=== PATIENT | male | born 1955 | race Caucasian/White ===

== ENCOUNTER 2024-06-27 02:55 | Observation (INO) ==
--- OUTSIDE RECORDS SUMMARY | 2024-06-27 02:59 | External Medical Summary | Continuity of Care Document ---
Author Name Unknown Organization [facility] [address] Address [address] [place], [place] [id number] Care Team Providers Care Haul Cane Brakeman Name Role Phone Janet Martinez Primary Care Physician [phone] [id number] Date(s): 06/15/24 - 06/15/24 [facility] [address] 1 [facility] [place], [place] [phone] Encounter Diagnosis Obstructive sleep apnea (adult) (pediatric)(Final) - Encounter for screening for lipoid disorders(Final) - Nontoxic single thyroid nodule(Final) - Mastodynia(Final) - Discharge Disposition: Home or Self Care Attending Physician: MD Martinez [place] Referring Physician: MD Michelle, Janet Allergies, Adverse Reactions, Alerts No Known Medication Allergies Substance Criticality Severity Reaction Reaction Severity Status Pollen eyes itching, nose running Active Immunizations Given and Recorded Vaccine Date Status Refusal Reason influenza virus vaccine, inactivated 05/17/24 Give n influenza virus vaccine, inactivated 08/13/23 Give n influenza virus vaccine, inactivated 04/18/22 Give n tetanus/diphtheria/pertuss, acel (Tdap) 08/13/23 G iven pneumococcal 20-valent conjugate vaccine 08/13/23 Given SARS-CoV-2 mRNA (Pfizer 12+) bivalent 04/05/22 Rec orded zoster vaccine, inactivated 04/10/21 Given zoster vaccine, inactivated 01/30/21 Given SARS-CoV-2 (COVID-19) mRNA-1273 vaccine 1 12/11/20 Recorded SARS-CoV-2 (COVID-19) mRNA-1273 vaccine 2 10/31/20 Recorded 1Result Comment: 2021-01-30: Historical information-source unspecified 2Result Comment: 2021-01-30: Historical information-source unspecified Medications Astelin 137 mcg/inh nasal spray Start: 01/30/21 3:32:00 PM EDT, 2 spray, each nostril, bid, Disp# 1 each, Refills: 3, PRN: as neededfor allergy symptoms, Pharmacy: [id number] Start Date: 01/30/21 Status: Ordered Folate Forte Start: 04/17/23 2:55:00 PM EDT, 1 tab, PO, Daily Start Date: 04/17/23 Status: Ordered triamcinolone 0.025% topical cream Start: 01/05/20 8:43:00 AM EDT, 1 appl, topical, bid, Disp# 15 g, Refills: 1, apply a thin film to affected area, Pharmacy: [id number] Start Date: 01/05/20 Status: Ordered Vitamin B1 100 mg oral tablet Start: 04/17/23 2:54:00 PM EDT, 1 tab, PO, Daily Start Date: 04/17/23 Status: Ordered Vitamin B12 1000 mcg oral tablet Start: 04/17/23 2:55:00 PM EDT, 1 tab, PO, Daily Start Date: 04/17/23 Status: Ordered Vitamin B6 100 mg oral tablet Start: 04/17/23 2:55:00 PM EDT, 1 tab, PO, Daily Start Date: 04/17/23 Status: Ordered Problem List Condition Confirmation Course Effective Dates Status Health St atus Informant Sleep apnea Confirmed Active Tinnitus Confirmed Active Procedures Procedure Date Related Diagnosis Body Site Status Diagnostic mammogram 02/10/24 Comp leted BIOPSY OF THYROID 07/2023 Complet ed US scan of thyroid 1 04/24/23 Comp leted X-ray of right ankle 2 Co mpleted 1IMPRESSION Multinodular thyroid gland. Ultrasound-guided fine-needle aspiration recommended for the dominant 22 mm nodule in the left thyroid and the dominant 25 mm nodule within the left side of the isthmus 21. Soft tissue swelling without acute fracture or dislocation identified. 2. Subcentimtere bone fragment adjacent to the lateral malleolus is suggestive of an age indeterminate avulsion fracture, likely chronic. 3. Moderate joint effusion. Results Laboratory List Name Date Complete Blood Count w Differential (CBC ,DIFFH) 06/15/24 Comprehensive Metabolic Panel (COMP META B PANEL) 06/15/24 Lipid Profile (LIPOPROTEINS) 06/15/24 Most recent to oldest [Reference Range]: 1 eGFR CKD-EPI [>60 mL/min/1.73 m2] >90 mL /min/1.73 m2 1 (06/15/24 9:58 AM) Non-HDL 100 mg/dL 2 (06/15/24 9:58 AM) Estimated CrCl 121.09 mL/min (06/15/24 11:00 AM) MPV [9.0-12.2 fL] 9.4 fL (06/15/24 9:58 AM) Immature Gran% 0.9 % (06/15/24 9:58 AM) Neut% 56.8 % (06/15/24 9:58 AM) Lymph% 31.1 % (06/15/24 9:58 AM) [place]% 7.8 % (06/15/24 9:58 AM) Baso% 0.5 % (06/15/24 9:58 AM) Eos% 2.9 % (06/15/24 9:58 AM) Immat Gran, Abs [0-0.4 K/uL] 0.05 K/uL (06/15/24 9:58 AM) Neut, Abs [2.0-7.7 K/uL] 3.33 K/uL (06/15/24 9:58 AM) Lymph, Abs [1.0-3.4 K/uL] 1.82 K/uL (06/15/24 9:58 AM) [place], Abs [0-1.0 K/uL] 0.46 K/uL (06/15/24 9:58 AM) Baso, Abs [0-0.1 K/uL] 0.03 K/uL (06/15/24 9:58 AM) Eos, Abs [0-0.5 K/uL] 0.17 K/uL (06/15/24 9:58 AM) Type of Diff: AUTO *Unknown* (06/15/24 9:58 AM) RDW [11.5-14.2 %] 12.6 % (06/15/24 9:58 AM) Anion Gap [5-14 mmol/L] 4 mmol/L *LOW* (06/15/24 9:58 AM) Alb [3.5-5.0 g/dL] 4.0 g/dL (06/15/24 9:58 AM) Alk Phos [38-126 unit/L] 74 unit/L (06/15/24:58 AM) ALT [<50 unit/L] 18 unit/L (06/15/24 9:58 AM) AST [15-46 unit/L] 29 unit/L (06/15/24:58 AM) BUN [7-20 mg/dL] 15 mg/dL (06/15/24:58 AM) Ca [8.4-10.2 mg/dL] 8.8 mg/dL (06/15/24:58 AM) Chol/HDL 3 (06/15/24:58 AM) Chol [125-200 mg/dL] 145 mg/dL (06/15/24:58 AM) Cl- [96-107 mmol/L] 107 mmol/L (06/15/24:58 AM) HCO3 [22-30 mmol/L] 29 mmol/L (06/15/24:58 AM) Cret [0.70-1.30 mg/dL] 0.70 mg/dL (06/15/24:58 AM) Glu [74-106 mg/dL] 104 mg/dL (06/15/24:58 AM) Hct [39-48 %] 42.0 % (06/15/24:58 AM) HDL [>35 mg/dL] 45 mg/dL (06/15/24:58 AM) Hgb [13.0-17.0 g/dL] 13.9 g/dL (06/15/24:58 AM) K [3.5-5.1 mmol/L] 3.9 mmol/L (06/15/24:58 AM) LDL Chol, Calculated [50-130 mg/dL] 84 m g/dL (06/15/24:58 AM) MCH [28-33 pg] 30.0 pg (06/15/24:58 AM) MCHC [32-36 g/dL] 33.1 g/dL (06/15/24 9:58 AM) MCV [81-96 fL] 90.5 fL (06/15/24 9:58 AM) Na [137-145 mmol/L] 140 mmol/L (06/15/24 9:58 AM) Plts [150-350 K/uL] 221 K/uL (06/15/24 9:58 AM) RBC [4.40-5.60 M/uL] 4.64 M/uL (06/15/24 9:58 AM) T Bili [0.2-1.3 mg/dL] 0.5 mg/dL (06/15/24 9:58 AM) Prot [6.3-8.2 g/dL] 7.0 g/dL (06/15/24 9:58 AM) TG [<200 mg/dL] 78 mg/dL (06/15/24 9:58 AM) WBC [4.0-10.4 K/uL] 5.86 K/uL (06/15/24 9:58 AM) 1Result Comment: Testing Performed By: Dept of Pathology [facility] [address], [address] [place] [address] 2Result Comment: Testing Performed By: Dept of Pathology [facility] [address], [address] [place] [address] Social History Social History Type Response Smoking Status Never smoked cigaret yee Sex Male Sex Representation Male (finding) Patient Care team information Care Team Personnel Name: MD Michelle, Janet Position: Physician - Family Med Member Role: Primary Care Provider Address: [address] [place] [address], [place] [address] [place] Care Team Related Persons Name: BROOK SHELDON Name: BROOK SHELDON
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
--- OUTSIDE RECORDS SUMMARY | 2024-06-27 02:59 | External Medical Summary | Continuity of Care Document ---
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 Name Role Phone Janet Martinez Primary Care Physician [phone] [id number] Date(s): 03/05/24 - 03/05/24 [facility] [address] [facility] [address] [facility] [address] [place], [place] [phone] Encounter Diagnosis Hypertrophy of breast(Final) - Discharge Disposition: Home or Self Care Attending Physician: MD Martinez [place] Referring Physician: MD Martinez [place] Allergies, Adverse Reactions, Alerts No Known Medication Allergies Substance Criticality Severity Reaction Reaction Severity Status Pollen eyes itching, nose running Active Immunizations Given and Recorded Vaccine Date Status Refusal Reason influenza virus vaccine, inactivated 08/13/23 Give n [...] 3, PRN: as neededfor allergy symptoms, Pharmacy: [id number] Start Date: 01/30/21 Status: Ordered Folate Forte Start: 04/17/23 2:55:00 PM EDT, 1 tab, PO, Daily Start Date: 04/17/23 Status: Ordered triamcinolone 0.025% topical cream Start: 01/05/20 8:43:00 AM EDT, 1 appl, topical, bid, Disp# 15 g, Refills: 1, apply a thin film to affected area, Pharmacy: [id number] Start Date: 01/05/20 Status: Ordered [...] joint effusion. Results Laboratory List Name Date HCG, Beta, Quantitative (HCG, BETA) 03/05 Luteinizing Hormone (LH) 03/05/24 Thyroid Stimulating Hormone (TSH) 4 Most recent to oldest [Reference Range]: 1 HCG (q) [<5 mIU/mL] <5 mIU/mL 1 (03/05/24 9:59 AM) LH [1.7-8.6 mIU/mL] 3.20 mIU/mL (03/05/24 9:59 AM) TSH [0.47-4.68 uIU/mL] 1.91 uIU/mL 2 (03/05/24 9:59 AM) 1Result Comment: HCG levels may be falsely elevated by a number of interfering factors includingheterophilic antibodies. If the HCG result is inconsistent with or not supported by clinical evidence, results should be confirmed by a urine HCG test. Because of the concern regarding false positive results, HCG results should only be used in conjunction with other clinical information before acting onthe result. 2Result Comment: Testing Performed By: Dept of Pathology [facility] [address], [address] [place] [address] Social History Social History Type Response Smoking Status Never smoked cigaret yee Sex Male Sex Representation Male (finding) Patient Care team information Care Team Personnel Name: MD Michelle, [place] Position: Physician - Family Med Member Role: Primary Care Provider Address: [address] [place] [address] [place] Care Team Related Persons Name: BROOK SHELDON Name: BROOK SHELDON
--- OUTSIDE RECORDS SUMMARY | 2024-06-27 02:59 | External Medical Summary | Continuity of Care Document ---
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 Name Role Phone Jante Martinez Primary Care Physician [phone] [id number] Date(s): 03/02/24 - 03/02/[address] [address] [phone] Encounter Diagnosis Gynecomastia, male(Discharge Diagnosis) - 03/02/24 Discharge Disposition: Home or Self Care Attending Physician: MD Michelle Janet Referring Physician: MD Michelle, Janet Allergies, Adverse Reactions, Alerts No Known Medication Allergies Substance Criticality Severity Reaction Reaction Severity Status Pollen eyes itching, nose running Active Assessment and Plan Extracted from: Title:Office Visit Note Author:MD Michelle, [facility] Date:03/02/24 1.Gynecomastia, male Discussed with patient thathisrightbreastgynecomastia,probably benign. Advised to schedule his ultrasoundof the breast. Will order labslikeTSH,luteinizing hormone, HCGand estradiol. Referral toendocrinologistforfurther evaluation and management. Informhimwe probably do not need this test anymore butit is best to just go ahead and do itadvised to make an appointment withendocrinology. Follow-up as needed Immunizations Given and Recorded Vaccine Date Status [...] 3, PRN: as neededfor allergy symptoms, Pharmacy: [id number] Start Date: 01/30/21 Status: Ordered Folate Forte Start: 04/17/23 2:55:00 PM EDT, 1 tab, PO, Daily Start Date: 04/17/23 Status: Ordered triamcinolone 0.025% topical cream Start: 01/05/20 8:43:00 AM EDT, 1 appl, topical, bid, Disp# 15 g, Refills: 1, apply a thin film to affected area, Pharmacy: [id number] Start Date: 01/05/20 Status: [...] Start Date: 04/17/23 Status: Ordered Mental Status 03/02/24 Barriers to Learning one year None evide nt Mandatory Health Literacy Documentation Yes Health Literacy Communication Barriers N ever Primary Language Persian Problem List Condition Confirmation Course Effective Dates Status Health St atus Informant Sleep apnea Confirmed Active Tinnitus Confirmed Active Diagnosis Diagnosis Type Effective Dates Health Status Cl inical Service Informant Gynecomastia, male Discharge Diagnosis 03/02/24 Non-Specified Procedures Procedure Date Related Diagnosis Body [...] Most recent to oldest [Reference Range]: 1 Patient Weight 99.5 kg (03/02/24 10:08 AM) Heart Rate 51 bpm (03/02/24 10:08 AM) Respiratory Rate 18 br/min (03/02/24 10:08 AM) Blood Pressure 142/80mmHg (03/02/24 10:08 AM) Social History Social History Type Response Smoking Status Never smoked cigaret yee Sex Male Sex Representation Male (finding) [facility] Outpt Note * MD Michelle, [place]: PERFORM Event Display: [facility] Outpt Note Authored Date: [id number] Chief Complaint discuss test results - continues to have RT breast pain History of Present Illness 68-year-old male here today for follow-upof rightbreast pain started more than a monthago.He had mammogram donewhich showedright breastgynecomastia. Patient reported that he has notscheduledhis appointmentfor ultrasound of the breast. Today patient is complaining aboutlingering pain. He tried Tylenoland Motrin whichafforded no relief. Massagingthe breastnipplemakes it better. Deniesfever denies and deniesunintentional weight loss, deniesnipple discharge, deniesswelling or redness onthe right breast. Review of Systems See HPI Physical Exam Vitals & Measurements HR:51(Monitored) RR:18 BP:142/80 SpO2:98% WT:99.500kg(Dosing) WT:99.5kg PHQ2 Data(Data Documented on:03/02/2024 10:08) Emotional health assessment NEGATIVE General: alert and oriented, no acute distress HENT: normocephalic Neck: supple, no cervical or axillary LAP Breastexam:left breast normal exam. Right breast:no erythema, no swelling, tender to palpation below areola,nopalpable mass at the time of examination. But,patient still complaining about breast tenderness.. no nipple discharge seen. norash. No nipple dimpling Resp: Lungs CTA, non-labored respirations, BS equal, symmetrical expansion CV: normal rate and rhythm, no murmur, no gallop, good pulses equal in all extremities, normal peripheral perfusion, no edema GI: soft, non-tender, non-distended, normal bowel sounds, no organomegaly : no CVA tenderness MS: normal gait Psychiatric: appropriate mood and affect, normal judgement, non-suicidalhe Assessment/Plan 1.Gynecomastia, male Discussed with patient thathisrightbreastgynecomastia,probably benign. Advised to schedule his ultrasoundof the breast. Will order labslikeTSH,luteinizing hormone, HCGand estradiol. Referral toendocrinologistforfurther evaluation and management. Informhimwe probably do not need this test anymore butit is best to just go ahead and do itadvised to make an appointment withendocrinology. 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 Highest education:Post graduate degree(s) Exercise Duration (average number of minutes):30 Times per week:5-6 times/week Exercise type:Aerobics - Comments: Cycling Tobacco - Denies Tobacco Use Family History Cancer: Father. Colon cancer stage 1: Mother. Glaucoma: Father. Hypertension: Father. Lung cancer: MGF. Health Status Family Member(s) Immunizations Vaccine Date Status influenza virus vaccine, inactivated 08/13/2023 Given tetanus/diphtheria/pertuss, [...] Recommendations Health Maintenance Pending(in the next year) OverDue Adult Influenza Vaccine due01/04/24and every 1year Due Adult COVID-19 Vaccination due03/03/24Unknown Frequency Adult Social Determinants of Health Screening due03/03/24Unknown Frequency Falls Plan of Care due03/03/24Unknown Frequency Hepatitis C Screening due03/03/24One-time only Medicare Annual Wellness Visit due03/03/24and every 1year Satisfied(in the past 1 year) Satisfied Adult Influenza Vaccine on08/13/23.Satisfied by MICHAEL Ward Bobbi Adult Tdap/Td Vaccine on08/13/23.Satisfied by MICHAEL Ward Bobbi Body Mass Index on08/13/23.Satisfied by MICHAEL Ward Bobbi Colorectal Cancer Screening on06/01/23.Satisfied by SASHA Johnson Lisa Lipid Screening on05/13/23.Satisfied by Contributor_system, [id number] Pneumococcal Vaccine Older Adults on08/13/23.Satisfied by MICHAEL Ward Bobbi Electronic Signature on File Electronically Reviewed/Signed by: Janet Martinez MD Author Signature Dt/Tm:03/03/2024 01:48 AM Department of Family Medicine VS Patient Care team information Care Team Personnel Name: MD Michelle, Janet Position: Physician - Family Med Member Role: Primary Care Provider Address: [address] [place] [address] [place] Care Team Related Persons Name: BROOK SHELDON Name: BROOK SHELDON"
[2024-06-27 03:34] LABS: Basophils # (auto) 0.04 K/uL (0.00-0.20); Basophils % (auto) 0.3 %; Eosinophils # (auto) 0.04 K/uL (0.00-0.50); Eosinophils % (auto) 0.3 %; Hematocrit (blood only) 42.4 % (42.0-52.0); Hemoglobin 14.4 g/dl (14.0-18.0); Immature Granulocytes # (auto) 0.06 K/uL (0.01-0.20); Immature Granulocytes % (auto) 0.4 %; Lymphocytes # (auto) 1.31 K/uL (1.20-3.40); Lymphocytes % (auto) 9.4 %; Mean Corpuscular Hemoglobin 29.7 pg (25.0-34.0); Mean Corpuscular Volume 87.4 fL (80.0-100.0); Mean Platelet Volume 8.8 fL (9.4-12.4); Monocytes # (auto) 0.52 K/uL (0.11-0.59); Monocytes % (auto) 3.7 %; Neutrophils # (auto) 11.97 K/uL (1.40-6.50); Neutrophils % (auto) 85.9 %; Platelet Count 212 K/uL (130-400); RDW Coefficient of Variation 12.4 % (11.5-14.5); RDW Standard Deviation 39.8 fL (36.4-46.3); Red Blood Count 4.85 M/uL (4.70-6.10); White Blood Count 13.94 K/ul (4.8-10.8)
[2024-06-27] MEDS: fentaNYL citrate PF 100 MCG/2 ML VIAL IV STA ×2 (03:45→12:35)
[2024-06-27] MEDS: ACETAMINOPHEN 1,000 MG/100 ML VIAL IV STA (03:46)
[2024-06-27] MEDS: PANTOprazole 40 MG/10 ML SYR IV ONE (03:46)
[2024-06-27] MEDS: SODIUM CHLORIDE 0.9% 1,000 ML IV SCH (03:47)
[2024-06-27 03:51] LABS: Albumin Globulin Ratio 1.6 (0.9-2); Albumin Level 4.6 gm/dl (3.4-5.0); BUN Creatinine Ratio 19.8 (10-20); Bilirubin,Total 0.7 mg/dl (0.2-1.0); Calcium 9.2 mg/dl (8.6-10.3); Creatinine Clr Calc Pharmacy 104.7 ml/min; Globulin 2.8 gm/dl (2.5-4.0); Potassium 3.5 mmol/L (3.5-5.1); Total Protein 7.4 gm/dl (6.0-8.3)
[2024-06-27] MEDS: OPTIRAY 320 100ml IV ONE (04:06)
--- NOTE | 2024-06-27 04:54 | Emergency Department Note ---
Impression & Plan Abdominal pain, Cholelithiasis ED Provider Note ED Provider Note NAME: FLOYD SHELDON AGE:68 SEX: Male : 1955 ARRIVES VIA: Private vehicle INFORMANT: Patient ED PROVIDER(s): Elva Reyes DO CHIEF COMPLAINT: Abdominal pain HPI: This is a 68-year-old male presents emergency department with abdominal pain. Patient states pain began abruptly 4 hours ago before he had gone to bed. He states initially it was more diffuse across the abdomen and now feels more localized to the upper central abdomen. He states pain has been constant, no change with position or exertion. He states he does have some accompanying discomfort in his back but does have a history of back pain. He admits to slight nausea although no vomiting, no fevers or chills. He states he has not had a bowel movement today which is unusual for him although no recent change in bowel movements or urine. No recent fevers, chills, URI symptoms. No recent change in diet or medications. Patient has never had a colonoscopy. No prior abdominal surgeries. No history of IBS or IBD. PAST MEDICAL HISTORY:See Below PAST SURGICAL HISTORY:See Below FAMILY HISTORY:See Below SOCIAL HISTORY:See Below HOME MEDICATIONS:See Below ALLERGIES:See Below VITALS:See Below PHYSICAL EXAMINATION: GENERAL: alert, well appearing, well nourished, no distress, non-toxic EYE EXAM: normal conjunctiva, PERRL and EOM's grossly intact OROPHARYNX: no exudate, no erythema, lips, buccal mucosa, and tongue normal and mucous membranes are moist NECK: supple, no nuchal rigidity, no adenopathy, non-tender LUNGS: Clear to auscultation. Normal chest wall mechanics, no w/r/r HEART: no murmurs, S1 normal and S2 normal ABDOMEN: abdomen soft, mild epigastric tenderness with palpation, normo-active bowel sounds, no masses, no rebound or guarding. Dull to percussion. BACK: Back is symmetrical on inspection and there is no deformity, no midline tenderness, no CVA tenderness. SKIN: no rashes, petechiae, orbruising UPPER EXTREMITIES: upper extremities are grossly normal. FROM, nml pulses b/l. LOWER EXTREMITIES: No pitting edema. FROM, nml pulses b/l. NEURO EXAM: Normal sensorium, cranial nerves II-XII grossly intact, normal speech, no facial droop,nogross weakness of arms, no gross weakness of legs. Gross sensation intact. No ataxia. Vital Signs: reviewed and remarkable Differential Diagnosis: ACS, PUD, gastritis, GERD, cholecystitis, pancreatitis, colitis, bowel obstruction, perforation, GI bleed, dehydration, medication ADR, foodborne illness, viral syndrome, AAA, as well as others were considered MEDICAL DECISION MAKING: THis is a 68 yo male who presents to the ER with concern for epigastric pain. He was afebrile and VS stable. Labs drawn and sent, IV established, and patient monitored on telemetry. He was started on IVF and given IV tylenol, IV fentanyl, and IV protonix with improvement in his symptoms. Patient sent for CT initially which showed cholelithiasis, no cholecystitis and no other acute pathology. Given CT findings, he was sent for US additionally which suggested early cholecystitis. Given accompanying persistence of pain despite improvement after meds and leukocytosis noted on labs, case discussed with gen surg who came and evaluated the patient at bedside. Consultation(s): 0847: Discussed with Dr. Agudelo, general surgery, via [place] text. 0917: Dr. Agudelo now bedside evaluating the patient. ER Treatment Provided: See below Diagnostics Interpreted By Me: -ECG: Normal sinus at 61, normal axis, normal intervals, no acute ST/T wave changes -Cardiac Monitoring: An order was placed for continuous cardiac monitoring. The monitor shows a rate of 80 with normal sinus rhythm. -Laboratory studies: As stated above and show below. -Imaging studies: CT a/p - no sbo, no perf Triage Nursing Note Reviewed Prior/Outside Records Reviewed Past Med/Surg History Problem List (Updated 06/27/24 @ 09:21 by Ryan Agudelo DO) Umbilical hernia without mention of obstruction or gangrene Acute cholecystitis Cholelithiasis (Acute) Abdominal pain (Acute) Surgical History (Updated 06/28/24 @ 12:05 by Lyssa Reid RN) Hx laparoscopic cholecystectomy (06/27/24) Laparoscopic Cholecystectomy(Not Applicable) - Ryan Agudelo DO Social History (Updated 03/05/24 @ 13:33 by Marilee Mendoza LPN) Smoking Status: Never smoker Hx Alcohol Use: Yes Alcohol type: beer Hx Substance Use: No Preferred Language: Italian Communication Ability: Effective Butter Melter Required: No Beliefs That Will Affect Care: None Current Living Situation: Spouse Feels Safe at Home: Yes Assistive Devices: Glasses and Hearing Aid - Bilateral Allergies Allergies Allergy/AdvReac Type Severity Reaction Status Date / Time No Known Allergies Allergy Verified 03/05/24 13:33 Home Meds Home Medications Medication Instructions Recorded Confirmed azelastine 137 mcg (0.1 %) nasal 2 spray intranasal BID 03/05/24 03/05/24 spray cyanocobalamin (vitamin B-12) 1,000 mcg PO DAILY 03/05/24 03/05/24 1,000 mcg tablet multivitamin 1 tab PO DAILY 03/05/24 03/05/24 pyridoxine (vitamin B6) 100 mg 100 mg PO DAILY 03/05/24 03/05/24 tablet thiamine HCl (vitamin B1) 100 mg 100 mg PO DAILY 03/05/24 03/05/24 tablet triamcinolone acetonide 0.025 % 1 applic topical BID 03/05/24 03/05/24 lotion Previous Rx's Medication Instructions Recorded oxycodone 5 mg tablet 5 - 10 mg (1 - 2 x 5 mg) PO 06/28/24 [id number] PRN pain #15 tabs Results & Data (ED) Vital Signs Vital Signs - 24 hr 06/27/24 02:55 06/27/24 03:08 06/27/24 03:17 Temperature 36.6 C Temperature Source Temporal Artery Scan Pulse Rate 64 63 62 Pulse Rate [Apical] Pulse Rate from SpO2 Sensor Pulse Rhythm Regular Pulse Rhythm [Apical] Pulse Strength [Apical] Respiratory Rate 22 17 Respiratory Effort / Characteristics Non-Labored Spontaneous Respiratory Depth Normal Respiratory Pattern Blood Pressure 197/87 H Blood Pressure [Right Arm] Blood Pressure Mean 123 Blood Pressure Mean [Right Arm] Blood Pressure Position [Right Arm] Pulse Oximetry 98 98 Oxygen Delivery Method Room Air Room Air Sepsis Recent Fever Within 48 Hours No Sepsis New/Unexplained Change in Mental Status No Sepsis Action Taken by Nursing No Action Required 06/27/24 03:25 06/27/24 05:00 06/27/24 07:00 Temperature Temperature Source Pulse Rate Pulse Rate [Apical] 62 81 Pulse Rate from SpO2 Sensor Pulse Rhythm Pulse Rhythm [Apical] Regular Regular Pulse Strength [Apical] Normal Normal Respiratory Rate 17 17 Respiratory Effort / Characteristics Non-Labored Non-Labored Respiratory Depth Normal Normal Respiratory Pattern Regular Regular Blood Pressure 164/83 H Blood Pressure [Right Arm] 176/100 H 186/92 H Blood Pressure Mean 102 Blood Pressure Mean [Right Arm] 125 123 Blood Pressure Position [Right Arm] Sitting Sitting Pulse Oximetry 98 98 Oxygen Delivery Method Room Air Room Air Sepsis Recent Fever Within 48 Hours Sepsis New/Unexplained Change in Mental Status Sepsis Action Taken by Nursing 06/27/24 07:00 06/27/24 07:45 06/27/24 08:00 Temperature Temperature Source Pulse Rate 64 64 64 Pulse Rate [Apical] Pulse Rate from SpO2 Sensor 63 64 64 Pulse Rhythm Pulse Rhythm [Apical] Pulse Strength [Apical] Respiratory Rate 17 17 18 Respiratory Effort / Characteristics Respiratory Depth Respiratory Pattern Blood Pressure Blood Pressure [Right Arm] Blood Pressure Mean Blood Pressure Mean [Right Arm] Blood Pressure Position [Right Arm] Pulse Oximetry 96 96 95 Oxygen Delivery Method Room Air Room Air Room Air Sepsis Recent Fever Within 48 Hours Sepsis New/Unexplained Change in Mental Status Sepsis Action Taken by Nursing 06/27/24 08:00 06/27/24 08:13 06/27/24 08:30 Temperature Temperature Source Pulse Rate 71 65 Pulse Rate [Apical] Pulse Rate from SpO2 Sensor 65 Pulse Rhythm Pulse Rhythm [Apical] Pulse Strength [Apical] Respiratory Rate 16 Respiratory Effort / Characteristics Respiratory Depth Respiratory Pattern Blood Pressure 151/80 H Blood Pressure [Right Arm] Blood Pressure Mean 93 Blood Pressure Mean [Right Arm] Blood Pressure Position [Right Arm] Pulse Oximetry 96 Oxygen Delivery Method Room Air Sepsis Recent Fever Within 48 Hours Sepsis New/Unexplained Change in Mental Status Sepsis Action Taken by Nursing Laboratory Data 06/28/24 05:28 06/28/24 05:28 Lab Results 06/27/24 06/27/24 06/27/24 Range/Units 03:08 03:42 05:28 WBC 13.94 H (4.8-10.8) K/ul RBC 4.85 (4.70-6.10) M/uL Hgb 14.4 (14.0-18.0) g/dl Hct 42.4 (42.0-52.0) % MCV 87.4 (80.0-100.0) fL MCH 29.7 (25.0-34.0) pg MCHC 34.0 (32.0-36.0) g/dL RDW Std Deviation 39.8 (36.4-46.3) fL RDW Coeff of Jose 12.4 (11.5-14.5) % Plt Count 212 (130-400) K/uL MPV 8.8 L (9.4-12.4) fL Immature Gran % (Auto) 0.4 % Neut % (Auto) 85.9 % Lymph % (Auto) 9.4 % Crisp % (Auto) 3.7 % Eos % (Auto) 0.3 % Baso % (Auto) 0.3 % Neut # (Auto) 11.97 H (1.40-6.50) K/uL Lymph # (Auto) 1.31 (1.20-3.40) K/uL Crisp # (Auto) 0.52 (0.11-0.59) K/uL Eos # (Auto) 0.04 (0.00-0.50) K/uL Baso # (Auto) 0.04 (0.00-0.20) K/uL Immature Gran # (Auto) 0.06 (0.01-0.20) K/uL Sodium 138 (136-145) mmol/L Potassium 3.5 (3.5-5.1) mmol/L Chloride 103 (98-107) mmol/L Carbon Dioxide 26 (21-32) mmol/L Anion Gap 9 (3-11) BUN 16 (6-23) mg/dl Creatinine 0.81 (0.6-1.4) mg/dl Est Cr Clr Drug Dosing 104.7 ml/min eGFR 96.04 BUN/Creatinine Ratio 19.8 (10-20) Glucose 148 H (70-99(Fasting)) mg/dl Lactate 1.3 (0.4-2.0) mmol/L Calcium 9.2 (8.6-10.3) mg/dl Total Bilirubin 0.7 (0.2-1.0) mg/dl AST 23 (13-39) U/L ALT 19 (7-52) U/L Alkaline Phosphatase 80 (34-104) U/L Troponin I High Sens (0-20) pg/ml Total Protein 7.4 (6.0-8.3) gm/dl Albumin 4.6 (3.4-5.0) gm/dl Globulin 2.8 (2.5-4.0) gm/dl Albumin/Globulin Ratio 1.6 (0.9-2) Lipase 14 (11-82) U/L Urine Color Yellow Urine Appearance Clear (Clear) Urine pH 7.0 (4.5-7.5) Ur Specific Center > 1.045 H (1.000-1.030) Urine Protein Negative (Negative) Urine Glucose (UA) Negative (Negative) Urine Ketones Negative (Negative) Urine Blood Trace H (Negative) Urine Nitrite Negative (Negative) Urine Bilirubin Negative (Negative) Urine Urobilinogen Negative (Negative) Ur Leukocyte Esterase Negative (Negative) Urine WBC (Auto) 0-5 (0-5) /hpf Urine RBC (Auto) 3-5 H (0-2) /hpf U Hyaline Cast (Auto) 0-2 (0-2) /lpf U Epithel Cells (Auto) 0-2 (0-2) /hpf Urine Bacteria (Auto) None Seen (None Seen) 06/27/24 Range/Units 05:49 WBC (4.8-10.8) K/ul RBC (4.70-6.10) M/uL Hgb (14.0-18.0) g/dl Hct (42.0-52.0) % MCV (80.0-100.0) fL MCH (25.0-34.0) pg MCHC (32.0-36.0) g/dL RDW Std Deviation (36.4-46.3) fL RDW Coeff of Jose (11.5-14.5) % Plt Count (130-400) K/uL MPV (9.4-12.4) fL Immature Gran % (Auto) % Neut % (Auto) % Lymph % (Auto) % Crisp % (Auto) % Eos % (Auto) % Baso % (Auto) % Neut # (Auto) (1.40-6.50) K/uL Lymph # (Auto) (1.20-3.40) K/uL Crisp # (Auto) (0.11-0.59) K/uL Eos # (Auto) (0.00-0.50) K/uL Baso # (Auto) (0.00-0.20) K/uL Immature Gran # (Auto) (0.01-0.20) K/uL Sodium (136-145) mmol/L Potassium (3.5-5.1) mmol/L Chloride (98-107) mmol/L Carbon Dioxide (21-32) mmol/L Anion Gap (3-11) BUN (6-23) mg/dl Creatinine (0.6-1.4) mg/dl Est Cr Clr Drug Dosing ml/min eGFR BUN/Creatinine Ratio (10-20) Glucose (70-99(Fasting)) mg/dl Lactate (0.4-2.0) mmol/L Calcium (8.6-10.3) mg/dl Total Bilirubin (0.2-1.0) mg/dl AST (13-39) U/L ALT (7-52) U/L Alkaline Phosphatase (34-104) U/L Troponin I High Sens 4.6 (0-20) pg/ml Total Protein (6.0-8.3) gm/dl Albumin (3.4-5.0) gm/dl Globulin (2.5-4.0) gm/dl Albumin/Globulin Ratio (0.9-2) Lipase (11-82) U/L Urine Color Urine Appearance (Clear) Urine pH (4.5-7.5) Ur Specific Center (1.000-1.030) Urine Protein (Negative) Urine Glucose (UA) (Negative) Urine Ketones (Negative) Urine Blood (Negative) Urine Nitrite (Negative) Urine Bilirubin (Negative) Urine Urobilinogen (Negative) Ur Leukocyte Esterase (Negative) Urine WBC (Auto) (0-5) /hpf Urine RBC (Auto) (0-2) /hpf U Hyaline Cast (Auto) (0-2) /lpf U Epithel Cells (Auto) (0-2) /hpf Urine Bacteria (Auto) (None Seen) Administered Medications Discontinued Medications Bupivacaine HCl/Epinephrine Bitart (Bupivacaine/Epinephrine 0.5% Mpf 1:200,000 30 Ml Vial) Confirm Administered Dose 30 ml .ROUTE .STK-MED ONE Stop: 06/27/24 14:49 Last Admin: 06/27/24 15:15 Dose: 30 ml Documented By: LALITA Fentanyl Citrate (Fentanyl Citrate Pf 100 Mcg/2 Ml Vial) 50 mcg IV NOW STA Stop: 06/27/24 03:36 Last Admin: 06/27/24 03:45 Dose: 50 mcg Documented By: CASPER Fentanyl Citrate (Fentanyl Citrate Pf 100 Mcg/2 Ml Vial) 50 mcg IV NOW STA Stop: 06/27/24 11:58 Last Admin: 06/27/24 12:35 Dose: 50 mcg Documented By: NOEMI Acetaminophen (Ofirmev) 1,000 mg in 100 mls @ 400 mls/hr IV NOW STA Stop: 06/27/24 03:49 Last Infusion: 06/27/24 04:02 Dose: Infused Documented By: Admin: 06/27/24 03:46 Dose: 400 mls/hr Documented By: CASPER Pantoprazole Sodium (Protonix) 40 mg in 10 mls @ 5 mls/min IV NOW ONE Stop: 06/27/24 03:36 Last Admin: 06/27/24 03:46 Dose: 5 mls/min Documented By: CASPER Sodium Chloride (Nss) 1,000 mls @ 125 mls/hr IV .Q8H KIARRA Stop: 06/28/24 03:44 Last Infusion: 06/28/24 01:56 Dose: Infused Documented By: Admin: 06/27/24 18:31 Dose: Not Given Documented By: Admin: 06/27/24 17:18 Dose: 125 mls/hr Documented By: Infusion: 06/27/24 14:10 Dose: Infused Documented By: Admin: 06/27/24 03:47 Dose: 125 mls/hr Documented By: CASPER Cefazolin Sodium (Ancef 2000mg) 2,000 mg in 15 mls @ 3.75 mls/min IV ONCE ONE; Protocol Stop: 06/27/24 15:19 Last Admin: 06/27/24 14:50 Dose: 3.75 mls/min Documented By: LALITA Cefazolin Sodium (Ancef 2000mg) 2,000 mg in 15 mls @ 3.75 mls/min IV Q8H KIARRA; Protocol Stop: 07/07/24 17:04 Last Admin: 06/28/24 05:59 Dose: 3.75 mls/min Documented By: Admin: 06/27/24 21:25 Dose: 3.75 mls/min Documented By: FELICE Ioversol (Optiray 320 100ml) 94 ml IV ONCE ONE Stop: 06/27/24 04:06 Last Admin: 06/27/24 04:06 Dose: 94 ml Documented By: ISIDRA Imaging Data Radiologist's Impression: Abdomen/Pelvis CT 06/27/24 03:08 EXAM: CT abd pelvis IV con only CLINICAL HISTORY: diffuse abd pain , 94 ml optiray 320 TECHNIQUE: Contrast-enhanced CT of the abdomen and pelvis was performed, with the following protocol: axial images with, and reconstructed coronal and sagittal images. Intravenous contrast was administered. One of the following dose reduction techniques was utilized for this exam: Automated exposure control, adjustment of the mA and/or kV according to patient size, and use of iterative reconstruction. COMPARISON: None. FINDINGS: Visualized chest shows subpleural parenchymal bands in bilateral lower lobes. Abdomen: Liver: Normal in size, shape, and density. No focal lesions, cysts, or masses were identified. Hepatic vasculature and biliary ducts are unremarkable. Gallbladder and Biliary System: The gallbladder is distended with multiple intraluminal calculi. No wall thickening or pericholecystic fluid were identified. The common bile duct is normal in caliber without dilation. Pancreas: Pancreatic head, body, and tail are visualized and appear normal in size and density. No pancreatic masses or calcifications were noted. The pancreatic duct is not dilated. Spleen: Normal in size, shape, and density. No splenic lesions or masses were identified. Kidneys and Adrenal Glands: Both kidneys are normal in size, shape, and position. Cortical thickness is within normal limits. No renal calculi or hydronephrosis. Adrenal glands are unremarkable with no evidence of masses or hyperplasia. Pelvis: Urinary Bladder: Normal in contour and wall thickness. No intraluminal lesions identified. Prostate: Normal in size and contour. No focal lesions or masses identified. Seminal Vesicles: Normal in size and appearance. No abnormalities noted. Rectum and Sigmoid Colon: Normal wall thickness and no evidence of mass. Peritoneal and Retroperitoneal Structures: No free fluid or abnormal fluid collections were identified within the abdomen or pelvis. No lymphadenopathy was noted. Note is made of umbilical hernia with defect of 12mm and fat as content. Bowel: The visualized bowel loops are normal in caliber and appearance. No evidence of bowel obstruction or wall thickening. Bones and Soft Tissues: Pelvic bones and soft tissues are unremarkable. No fractures or abnormal masses were identified. Mild left sided scoliosis of lumbar spine. IMPRESSION: Choleliathisis without cholecystitis. Small umbilical hernia. Mild left sided scoliosis of lumbar spine. Electronically signed by Marty Smith 06-27-2024 05:34 AM Gallbladder Ultrasound 06/27/24 05:42 EXAM: US gallbladder CLINICAL HISTORY: PT C/O ABD PAIN PANC - MOSTLY OBS BY BOWEL GAS LIVER - L=17.7 CM RT KID - NO HYDRO GB - STONES AND SLUDGE SEEN, WALL = .5 CM COULD NOT ASSESS SHUKLA'S SIGN DUE TO PT GIVEN PAIN MEDS CBD - .5 CM 06/27/[address] TECHNIQUE: Limited ultrasound of the liver and gallbladder was performed in greyscale and Doppler. Multiple images were obtained in transverse and longitudinal planes. COMPARISON: 06/27/2024. FINDINGS: Assessment is suboptimal due to bowel gas interference. Liver Size: Liver measures 17.7 cm in length. Echotexture: Appears homogeneous without evidence of focal lesions, cysts, or masses. Hepatic Vasculature: Normal appearance. Gallbladder: Distended gallbladder. Gallbladder wall thickness is 0.5 cm. Presence of gallstones and sludge. No pericholecystic fluid or edema noted. Assessment of Shukla's sign was inconclusive due to the patient receiving pain medications. Biliary Tree Common Bile Duct (CBD): Measures 0.5 cm, within normal limits. No evidence of biliary obstruction or choledocholithiasis. Kidneys Right Kidney: No evidence of hydronephrosis. Minimal perihepatic free fluid. IMPRESSION: 1. Cholelithiasis and sludge present. Distended gallbladder. Mild gallbladder wall thickening. Early evolving cholecystitis could not be excluded. Clinical correlation is required given the inconclusive Shukla's sign. Unchanged. 2. Minimal perihepatic free fluid. 3. Unchanged mild hepatomegaly. 4. No significant interval changes compared to prior recent study dated on 06/27/2024. Electronically signed by Severino Desai 06-27-2024 08:03 AM Discharge Plan Visit Data Chief Complaint: Abdominal Pain Stated Complaint: ABD PAIN ED Provider: Elva Reyes Discharge Problem: Abdominal pain, Cholelithiasis Patient Disposition: Admitted As Inpatient Discharge Instructions Interventions: ED Discharge Assessment Last Done: 06/27/24 14:17
--- NOTE | 2024-06-27 05:35 | CT Scan Report ---
EXAM: CT abd pelvis IV con only CLINICAL HISTORY: diffuse abd pain , 94 ml optiray 320 TECHNIQUE: Contrast-enhanced CT of the abdomen and pelvis was performed, with the following protocol: axial images with, and reconstructed coronal and sagittal images. Intravenous contrast was administered. One of the following dose reduction techniques was utilized for this exam: Automated exposure control, adjustment of the mA and/or kV according to patient size, and use of iterative reconstruction. COMPARISON: None. FINDINGS: Visualized chest shows subpleural parenchymal bands in bilateral lower lobes. Abdomen: Liver: Normal in size, shape, and density. No focal lesions, cysts, or masses were identified. Hepatic vasculature and biliary ducts are unremarkable. Gallbladder and Biliary System: The gallbladder is distended with multiple intraluminal calculi. No wall thickening or pericholecystic fluid were identified. The common bile duct is normal in caliber without dilation. Pancreas: Pancreatic head, body, and tail are visualized and appear normal in size and density. No pancreatic masses or calcifications were noted. The pancreatic duct is not dilated. Spleen: Normal in size, shape, and density. No splenic lesions or masses were identified. Kidneys and Adrenal Glands: Both kidneys are normal in size, shape, and position. Cortical thickness is within normal limits. No renal calculi or hydronephrosis. Adrenal glands are unremarkable with no evidence of masses or hyperplasia. Pelvis: Urinary Bladder: Normal in contour and wall thickness. No intraluminal lesions identified. Prostate: Normal in size and contour. No focal lesions or masses identified. Seminal Vesicles: Normal in size and appearance. No abnormalities noted. Rectum and Sigmoid Colon: Normal wall thickness and no evidence of mass. Peritoneal and Retroperitoneal Structures: No free fluid or abnormal fluid collections were identified within the abdomen or pelvis. No lymphadenopathy was noted. Note is made of umbilical hernia with defect of 12mm and fat as content. Bowel: The visualized bowel loops are normal in caliber and appearance. No evidence of bowel obstruction or wall thickening. Bones and Soft Tissues: Pelvic bones and soft tissues are unremarkable. No fractures or abnormal masses were identified. Mild left sided scoliosis of lumbar spine. IMPRESSION: Choleliathisis without cholecystitis. Small umbilical hernia. Mild left sided scoliosis of lumbar spine. Electronically signed by Marty Smith 06-27-2024 05:34 AM
[2024-06-27 06:04] LABS: Appearance Urine Clear (Clear); Bacteria Urine Automated None Seen (None Seen); Bilirubin Urine Negative (Negative); Blood Urine Trace (Negative); Cast Urine Automated 0-2 /lpf (0-2); Color Urine Yellow; Epithelial Cell Urine Auto 0-2 /hpf (0-2); Glucose Urine UA Negative (Negative); Ketones Urine Negative (Negative); Leukocyte Esterase Urine Negative (Negative); Nitrite Urine Negative (Negative); Protein Urine Negative (Negative); Specific Gravity Urine > 1.045 (1.000-1.030); Urobilinogen Urine Negative (Negative); WBC Urine Automated 0-5 /hpf (0-5)
--- NOTE | 2024-06-27 08:03 | Ultrasound Report ---
EXAM: US gallbladder CLINICAL HISTORY: PT C/O ABD PAIN PANC - MOSTLY OBS BY BOWEL GAS LIVER - L=17.7 CM RT KID - NO HYDRO GB - STONES AND SLUDGE SEEN, WALL = .5 CM COULD NOT ASSESS SHUKLA'S SIGN DUE TO PT GIVEN PAIN MEDS CBD - .5 CM 06/27/[address] TECHNIQUE: Limited ultrasound of the liver and gallbladder was performed in greyscale and Doppler. Multiple images were obtained in transverse and longitudinal planes. COMPARISON: 06/27/2024. FINDINGS: Assessment is suboptimal due to bowel gas interference. Liver Size: Liver measures 17.7 cm in length. Echotexture: Appears homogeneous without evidence of focal lesions, cysts, or masses. Hepatic Vasculature: Normal appearance. Gallbladder: Distended gallbladder. Gallbladder wall thickness is 0.5 cm. Presence of gallstones and sludge. No pericholecystic fluid or edema noted. Assessment of Shukla's sign was inconclusive due to the patient receiving pain medications. Biliary Tree Common Bile Duct (CBD): Measures 0.5 cm, within normal limits. No evidence of biliary obstruction or choledocholithiasis. Kidneys Right Kidney: No evidence of hydronephrosis. Minimal perihepatic free fluid. IMPRESSION: 1. Cholelithiasis and sludge present. Distended gallbladder. Mild gallbladder wall thickening. Early evolving cholecystitis could not be excluded. Clinical correlation is required given the inconclusive Shukla's sign. Unchanged. 2. Minimal perihepatic free fluid. 3. Unchanged mild hepatomegaly. 4. No significant interval changes compared to prior recent study dated on 06/27/2024. Electronically signed by Severino Desai 06-27-2024 08:03 AM
--- NOTE | 2024-06-27 09:22 | History & Physical Report ---
Date of Service June 27, 2024 Assessment & Plan (1) Acute cholecystitis: Plan: Discussed his options. I am recommending laparoscopic cholecystectomy. We could perform umbilical hernia repair at the same time. We discussed potential risks which include bleeding, infection, injury to another organ, bile duct injury or leaks, DVT, PE, NE, CVA etc. Following our discussion I answered all of his questions. He agrees with the plan. If all goes well we will plan discharge after the procedure. (2) Cholelithiasis: (3) Umbilical hernia without mention of obstruction or gangrene: History of Present Illness Primary Care Provider: Janet Martinez MD 68-year-old male who began having rather severe epigastric abdominal pain last night. He had associated nausea and it persisted. He presented to the emergency room where he has a leukocytosis as well as an ultrasound with early acute cholecystitis. Feeling better after the fentanyl but still having some discomfort Allergies Allergy/AdvReac Type Severity Reaction Status Date / Time No Known Allergies Allergy Verified 03/05/24 13:33 Home Medications Medication Instructions Recorded Confirmed Type azelastine 137 mcg (0.1 %) nasal 2 spray intranasal BID 03/05/24 03/05/24 History spray cyanocobalamin (vitamin B-12) 1,000 mcg PO DAILY 03/05/24 03/05/24 History 1,000 mcg tablet multivitamin 1 tab PO DAILY 03/05/24 03/05/24 History pyridoxine (vitamin B6) 100 mg 100 mg PO DAILY 03/05/24 03/05/24 History tablet thiamine HCl (vitamin B1) 100 mg 100 mg PO DAILY 03/05/24 03/05/24 History tablet triamcinolone acetonide 0.025 % 1 applic topical BID 03/05/24 03/05/24 History lotion Past Med/Surg History Problem List (Updated 06/27/24 @ 09:21 by Ryan Agudelo DO) Umbilical hernia without mention of obstruction or gangrene Acute cholecystitis Cholelithiasis (Acute) Abdominal pain (Acute) Social History (Updated 03/05/24 @ 13:33 by Marilee Mendoza LPN) Smoking Status: Never smoker Preferred Language: Swedish Feels Safe at Home: Yes Review of Systems All systems reviewed & are unremarkable except as noted in HPI & below Physical Exam Constitutional: WD/WN, vitals as above no acute distress and not ill appearing Eyes: PERRL, conjunctivae normal, anicteric sclerae EOM intact bilaterally ENMT: external ear and nose normal, oropharynx normal Ears: no hearing impairment Neck: trachea midline, no thyromegaly Respiratory: normal respiratory effort; no respiratory distress and does not use accessory muscles Cardiovascular: Rate/Rhythm: regular rate and regular rhythm Gastrointestinal (Abdomen): Soft. Positive umbilical hernia. Reducible. Positive epigastric and right upper quadrant tenderness Skin: no rashes, warm and dry Psychiatric: Orientation: alert, oriented x 3 and cooperative Results & Data Vital Signs (Past 12 Hours) Vital Signs Temp Pulse Pulse Resp BP BP Pulse Ox 06/27/24 08:30 65 16 96 06/27/24 08:13 71 06/27/24 08:00 151/80 H 06/27/24 08:00 64 18 95 06/27/24 07:45 64 17 96 06/27/24 07:00 64 17 96 06/27/24 07:00 164/83 H 06/27/24 05:00 81 17 186/92 H 98 06/27/24 03:25 62 17 176/100 H 98 06/27/24 03:17 62 06/27/24 03:08 63 17 98 06/27/24 02:55 36.6 C 64 22 197/87 H 98 O2 Del Method 06/27/24 08:30 Room Air 06/27/24 08:13 06/27/24 08:00 06/27/24 08:00 Room Air 06/27/24 07:45 Room Air 06/27/24 07:00 Room Air 06/27/24 07:00 06/27/24 05:00 Room Air 06/27/24 03:25 Room Air 06/27/24 03:17 06/27/24 03:08 Room Air 06/27/24 02:55 Room Air
--- NOTE | 2024-06-27 13:12 | Electrocardiogram Report ---
Test Reason : Blood Pressure : */* mmHG Vent. Rate : 61 BPM Atrial Rate : 61 BPM P-R Int : 180 ms QRS Dur : 82 ms QT Int : 426 ms P-R-T Axes : 60 -3 50 degrees QTcB Int : 428 ms Normal sinus rhythm Poor R wave progression, consider anterior OK vs. lead placement vs. LVH Abnormal ECG When compared with ECG of 04-Oct-2002 11:13, Nonspecific T wave abnormality now evident in Lateral leads Confirmed by Mandeep Inman ([id number]) on 06/27/2024 1:12:23 PM Referred By: REFERRED SELF Confirmed By: Mandeep Inman
[2024-06-27] MEDS ORDERED: LIDOCAINE 2% 2 ML VIAL/AMP(20MG/ML) INFIL ONE (14:27)
[2024-06-27] MEDS ORDERED: MIDAZOLAM HCL 1 MG/ML 2ML VIAL ONE (14:27)
[2024-06-27] MEDS ORDERED: ONDANSETRON INJ 2 MG/ML 2 ML VIAL ONE (14:27)
[2024-06-27] MEDS ORDERED: PROPOFOL IV EMULSION 10 MG/ML 20 ML VIAL IV ONE (14:27)
[2024-06-27] MEDS ORDERED: DEXAMETHASONE SOD INJ 4 MG/ML VIAL ONE (14:27)
[2024-06-27] MEDS ORDERED: fentaNYL citrate PF 100 MCG/2 ML VIAL ONE ×3 (14:27→15:28)
[2024-06-27] MEDS ORDERED: ROCURONIUM BROMIDE 10 MG/ML 5 ML VIAL IV ONE ×2 (14:30→15:09)
--- NOTE | 2024-06-27 14:32 | Anesthesiology Consultation ---
Date of Service June 27, 2024 Assessment & Plan Chart Review Chart Review: Acceptable Risk for Surgery Consults Requested none History Surgery Operation Date: 06/27/24 12:00 Proposed Procedures p Laparoscopic Cholecystectomy - Ryan Agudelo DO Height/Weight Height: 5 ft 11 in Weight: 99 kg Allergies Allergy/AdvReac Type Severity Reaction Status Date / Time No Known Allergies Allergy Verified 03/05/24 13:33 Medications Home Medications Medication Instructions Recorded Confirmed Last Taken azelastine 137 mcg (0.1 %) nasal 2 spray intranasal BID 03/05/24 03/05/24 Unknown spray cyanocobalamin (vitamin B-12) 1,000 mcg PO DAILY 03/05/24 03/05/24 Unknown 1,000 mcg tablet multivitamin 1 tab PO DAILY 03/05/24 03/05/24 Unknown pyridoxine (vitamin B6) 100 mg 100 mg PO DAILY 03/05/24 03/05/24 Unknown tablet thiamine HCl (vitamin B1) 100 mg 100 mg PO DAILY 03/05/24 03/05/24 Unknown tablet triamcinolone acetonide 0.025 % 1 applic topical BID 03/05/24 03/05/24 Unknown lotion Active Medications Generic Name Dose Route Start Last Admin Trade Name Freq PRN Reason Stop Dose Admin Sodium Chloride 1,000 mls @ 125 mls/hr 06/27/24 03:45 06/27/24 14:10 Nss IV 06/28/24 03:44 Infused .Q8H KIARRA Infusion NPO Date Last Intake of Fluids: 06/26/24 Time Last Intake of Fluids: 23:00 Date Last Intake of Solids: 06/26/24 Time Last Intake of Solids: 22:00 Social History Smoking Status: Never smoker Physical Exam Vital Signs Last Vital Signs Temp 36.6 C 06/27/24 02:55 Pulse 70 06/27/24 13:45 Resp 13 06/27/24 13:45 BP 150/84 H 06/27/24 13:00 Pulse Ox 97 06/27/24 13:45 O2 Del Method Room Air 06/27/24 10:36 Testing Laboratory Results 06/27/24 03:08 06/27/24 03:08 Urine Color Yellow 06/27/24 05:28 Urine Appearance Clear (Clear) 06/27/24 05:28 Urine pH 7.0 (4.5-7.5) 06/27/24 05:28 Ur Specific [place] > 1.045 (1.000-1.030) H 06/27/24 05:28 Urine Protein Negative (Negative) 06/27/24 05:28 Urine Glucose (UA) Negative (Negative) 06/27/24 05:28 Urine Ketones Negative (Negative) 06/27/24 05:28 Urine Nitrite Negative (Negative) 06/27/24 05:28 Ur Leukocyte Esterase Negative (Negative) 06/27/24 05:28 Urine WBC (Auto) 0-5 /hpf (0-5) 06/27/24 05:28 Urine RBC (Auto) 3-5 /hpf (0-2) H 06/27/24 05:28 U Hyaline Cast (Auto) 0-2 /lpf (0-2) 06/27/24 05:28 U Epithel Cells (Auto) 0-2 /hpf (0-2) 06/27/24 05:28 Urine Bacteria (Auto) None Seen (None Seen) 06/27/24 05:28
[2024-06-27] MEDS ORDERED: ATROPINE SULFATE 0.1 MG/ML 10ML SYR IV PRN (14:34)
[2024-06-27] MEDS ORDERED: fentaNYL citrate PF 100 MCG/2 ML VIAL IV PRN (14:34)
[2024-06-27] MEDS ORDERED: ePHEDrine sulfate 50 MG/ML AMP IV PRN (14:34)
[2024-06-27] MEDS ORDERED: PROMETHAZINE HCL 6.25 MG in SODIUM CHLORIDE 0.9% 50 ML IV PRN (14:34)
[2024-06-27] MEDS ORDERED: HYDROmorphone INJ 2 MG/ML SYR/VIAL IV PRN (14:34)
[2024-06-27] MEDS ORDERED: ONDANSETRON INJ 2 MG/ML 2 ML VIAL IV PRN ×2 (14:34→17:05)
[2024-06-27] MEDS: ceFAZolin 2000MG 2,000 MG/15 ML SYR IV ONE (14:50)
[2024-06-27] MEDS ORDERED: ceFAZolin 330 MG/ML 1 GM VIAL ONE (14:51)
[2024-06-27] MEDS ORDERED: PHENYLEPHRINE HCL 10 MG/ML VIAL ONE (14:53)
[2024-06-27] MEDS ORDERED: SUGAMMADEX SODIUM 200 MG/2 ML VIAL IV ONE (15:14)
[2024-06-27] MEDS: BUPIVACAINE/EPINEPHRINE 0.5% MPF 1:200,000 30 ML VIAL ONE (15:15)
--- NOTE | 2024-06-27 15:54 | Operative Report ---
PG Post Operative Report Pre & Post Diagnosis Operation Date: 06/27/24 12:00 Pre-Op Diagnosis: acute cholecystitis; umbilical hernia Post-Op Diagnosis: acute cholecystitis; umbilical hernia I identified the patient and participated in the time-out.: Yes Procedure Operation Date: 06/27/24 12:00 Actual Procedures p Laparoscopic Cholecystectomy(Not Applicable) - Ryan Agudelo DO Surgeon Ryan Agudelo DO Kerrick Kleaner Operator OR staff Estimated Blood Loss 25 Findings Consistent with Post-Op Diagnosis Specimens gallbladder Description of Procedure After informed consent was obtained the patient was taken to the operating room and placed in the supine position. After successful intubation the abdomen was sterilely prepped and draped in usual fashion. A periumbilical incision was made with an 11 blade scalpel and carried down through the soft tissue using electrocautery. A Nara clamp was used to come around the superior aspect of the umbilical stalk. The umbilical stalk was taken down. This exposed about a 3 cm hernia defect. I exteriorized the hernia sac in 360 degrees. I then used [address] a stay suture on either side of the fascial defect. A finger sweep was performed and a 12 mm [place] trocar was placed. The abdomen was insufflated to 18 mmHg. The laparoscope was inserted and the abdomen was examined in 360. The gallbladder was acutely inflamed otherwise, no gross abnormalities were identified. A subxiphoid 5 mm port and 2 right upper quadrant 5 mm ports were placed under direct vision. The patient was placed in a reverse Trendelenburg position and slightly airplaned to the left. The gallbladder was too distended to grasp and therefore I used a gallbladder needle to drain about 20 cc of thick bile. Once this was accomplished, the gallbladder was grasped and elevated superiorly and laterally. A [place] dissector was used to take down adhesions around the neck of the gallbladder. The cystic duct was identified and skeletonized. It was clipped 3 times proximally and transected using a laparoscopic scissor. In similar fashion the cystic artery was identified and skeletonized clipped and divided. There was a posterior branch to the artery that was clipped and divided as well. The gallbladder was removed from the gallbladder fossa with electrocautery. It was placed into an Endo Catch bag. Thorough irrigation was performed. At the end of the procedure there was adequate hemostasis and no evidence of any bile leaks. A final look around the abdomen showed no other abnormalities. The gallbladder and trochars were all removed and the abdomen was desufflated. The fascia of the hernia was closed using #1 Ethibond in simple erupted fashion. Once this was accomplished the umbilical stalk was reapproximated using 0 Vicryl. This wound was irrigated and closed in 2 layers using 3-0 Vicryl for deep layers and 4-0 Monocryl for skin. The other 3 incisions were all closed using 4-0 Monocryl as well. Marcaine with epinephrine was injected around them for postoperative analgesia and skin glue used as a dressing. Patient was awakened extubated and transfe rred to recovery in stable condition. I attest to the content of the Intraoperative Record and any orders documented therein. Any exceptions are noted below.
--- NOTE | 2024-06-27 16:24 | Anesthesiology Progress Note ---
Date of Service June 27, 2024 Anesthesia Post Procedure Vital Signs Vital Signs: Temp Pulse Pulse Resp BP BP Pulse Ox 06/27/24 16:20 84 15 148/77 H 97 06/27/24 16:10 82 21 153/80 H 97 06/27/24 16:00 82 21 163/78 H 97 06/27/24 15:54 36 C L 95 H 23 139/94 95 06/27/24 13:45 70 13 97 06/27/24 13:21 65 19 96 06/27/24 13:06 64 16 94 06/27/24 13:00 150/84 H 06/27/24 12:51 66 18 93 06/27/24 12:42 68 17 92 06/27/24 12:39 67 20 93 06/27/24 12:33 65 06/27/24 12:21 66 17 95 06/27/24 12:15 67 17 95 06/27/24 12:00 68 14 99 06/27/24 12:00 173/97 H 06/27/24 11:54 71 12 99 06/27/24 11:42 73 13 06/27/24 11:33 74 12 93 06/27/24 11:21 78 14 93 06/27/24 11:12 69 12 98 06/27/24 11:03 68 11 L 98 06/27/24 11:00 168/97 H 06/27/24 11:00 168/97 H 06/27/24 11:00 168/97 H 06/27/24 11:00 168/97 H 06/27/24 10:54 75 22 99 06/27/24 10:51 67 9 L 98 06/27/24 10:48 76 15 97 06/27/24 10:36 64 15 96 06/27/24 10:00 168/94 H 06/27/24 10:00 66 12 97 06/27/24 09:30 74 22 91 06/27/24 09:03 72 17 97 06/27/24 09:02 164/97 H 06/27/24 08:33 65 15 95 06/27/24 08:30 65 16 96 06/27/24 08:13 71 06/27/24 08:00 151/80 H 06/27/24 08:00 64 18 95 06/27/24 07:45 64 17 96 06/27/24 07:00 64 17 96 06/27/24 07:00 164/83 H 06/27/24 05:00 81 17 186/92 H 98 06/27/24 03:25 62 17 176/100 H 98 06/27/24 03:17 62 06/27/24 03:08 63 17 98 06/27/24 02:55 36.6 C 64 22 197/87 H 98 O2 Del Method O2 Flow Rate 06/27/24 16:20 Nasal Cannula 4 06/27/24 16:10 Oxymask 8 06/27/24 16:00 Oxymask 10 06/27/24 15:54 Oxymask 10 06/27/24 13:45 06/27/24 13:21 06/27/24 13:06 06/27/24 13:00 06/27/24 12:51 06/27/24 12:42 06/27/24 12:39 06/27/24 12:33 06/27/24 12:21 06/27/24 12:15 06/27/24 12:00 06/27/24 12:00 06/27/24 11:54 06/27/24 11:42 06/27/24 11:33 06/27/24 11:21 06/27/24 11:12 06/27/24 11:03 06/27/24 11:00 06/27/24 11:00 06/27/24 11:00 06/27/24 11:00 06/27/24 10:54 06/27/24 10:51 06/27/24 10:48 06/27/24 10:36 Room Air 06/27/24 10:00 06/27/24 10:00 Room Air 06/27/24 09:30 Room Air 06/27/24 09:03 Room Air 06/27/24 09:02 06/27/24 08:33 Room Air 06/27/24 08:30 Room Air 06/27/24 08:13 06/27/24 08:00 06/27/24 08:00 Room Air 06/27/24 07:45 Room Air 06/27/24 07:00 Room Air 06/27/24 07:00 06/27/24 05:00 Room Air 06/27/24 03:25 Room Air 06/27/24 03:17 06/27/24 03:08 Room Air 06/27/24 02:55 Room Air Pain Intensity Upper Abdomen: Pain Intensity: 1 Transfer of Care Handoff Completed per policy Notes Mental Status: alert / awake / arousable and participated in evaluation Patient Amnestic to Procedure: Yes Nausea / Vomiting: adequately controlled Pain: adequately controlled Airway Patency, RR, SpO2: stable & adequate BP & HR: stable & adequate Hydration State: stable & adequate Anesthetic Complications: no major complications apparent
[2024-06-27] MEDS ORDERED: HYDROmorphone INJ 0.5 MG/0.5 ML SYR IV PRN ×2 (17:05)
[2024-06-27] MEDS ORDERED: IBUPROFEN 600 MG TAB PO PRN (17:05)
[2024-06-27] MEDS ORDERED: oxyCODONE HCL IR 5 MG TAB (IMMEDIATE RELEASE) PO PRN ×2 (17:05)
[2024-06-27] MEDS: ceFAZolin 2000MG 2,000 MG/15 ML SYR IV SCH (21:25)
[2024-06-28 05:51] LABS: Basophils # (auto) 0.01 K/uL (0.00-0.20); Basophils % (auto) 0.1 %; Eosinophils # (auto) 0.03 K/uL (0.00-0.50); Eosinophils % (auto) 0.2 %; Hematocrit (blood only) 39.3 % (42.0-52.0); Hemoglobin 13.4 g/dl (14.0-18.0); Immature Granulocytes # (auto) 0.03 K/uL (0.01-0.20); Immature Granulocytes % (auto) 0.2 %; Lymphocytes # (auto) 1.24 K/uL (1.20-3.40); Mean Corpuscular Hemoglobin 29.5 pg (25.0-34.0); Mean Corpuscular Hgb Conc 34.1 g/dL (32.0-36.0); Mean Corpuscular Volume 86.4 fL (80.0-100.0); Mean Platelet Volume 9.2 fL (9.4-12.4); Monocytes % (auto) 7.2 %; Neutrophils # (auto) 10.24 K/uL (1.40-6.50); Neutrophils % (auto) 82.3 %; Platelet Count 182 K/uL (130-400); RDW Coefficient of Variation 12.3 % (11.5-14.5); RDW Standard Deviation 38.7 fL (36.4-46.3); Red Blood Count 4.55 M/uL (4.70-6.10); White Blood Count 12.45 K/ul (4.8-10.8)
[2024-06-28 06:04] VITALS: RESP 18; O2SAT 96
[2024-06-28 06:13] LABS: Albumin Globulin Ratio 1.3 (0.9-2); Albumin Level 3.5 gm/dl (3.4-5.0); BUN Creatinine Ratio 12.5 (10-20); Bilirubin,Total 1.1 mg/dl (0.2-1.0); Calcium 8.4 mg/dl (8.6-10.3); Creatinine Clr Calc Pharmacy 132.5 ml/min; Globulin 2.8 gm/dl (2.5-4.0); Potassium 3.5 mmol/L (3.5-5.1); Total Protein 6.3 gm/dl (6.0-8.3)
[2024-06-28 07:22] VITALS: TEMP 98.1
--- NOTE | 2024-06-28 08:15 | Surgery Progress Note ---
Date of Service June 28, 2024 Assessment & Plan (1) Acute cholecystitis: Plan: pod 1 lap grace tolerating diet vss, wbc downtrending port sites CDI , erythema at umbilical hernia repair site expected pt stable for d/c , return precautions given pt seen and examined with Dr. Lang Admission and Anticipated Discharge Date Admission Date: June 27, 2024 Subjective pain tolerable no n/v , f/c , sob , cp Review of Systems Constitutional: no fever and no chills Respiratory: no dyspnea Cardiovascular: no chest pain Gastrointestinal: + abdominal pain (post surgical discomfo rt ); no nausea and no vomiting Musculoskeletal: no muscle weakness Psychiatric: no confusion Physical Exam Constitutional: cooperative and comfortable; no acute distress Respiratory: normal respiratory effort; no respiratory distress Cardiovascular: Rate/Rhythm: regular rate Gastrointestinal (Abdomen): Inspection/Auscultation: + abdominal surgical incision (dermabond CDI ) Psychiatric: A+Ox3, euthymic affect Results & Data Vital Signs (Past 12 Hours) Vital Signs Temp Pulse Resp BP BP Pulse Ox O2 Del Method 06/28/24 07:19 98.1 F 77 148/80 H 96 Room Air 06/28/24 05:05 98.4 F 75 18 157/76 H 96 Room Air 06/28/24 01:00 98.2 F 67 16 163/86 H 97 Room Air Results CBC w Diff Results: RBC 4.55 M/uL (4.70-6.10) L 06/28/24 WBC 12.45 K/ul (4.8-10.8) H 06/28/24 Hgb 13.4 g/dl (14.0-18.0) L 06/28/24 Hct 39.3 % (42.0-52.0) L 06/28/24 MCV 86.4 fL (80.0-100.0) 06/28/24 MCH 29.5 pg (25.0-34.0) 06/28/24 MCHC 34.1 g/dL (32.0-36.0) 06/28/24 RDW Standard Deviation 38.7 fL (36.4-46.3) 06/28/24 RDW Coefficient of Variation 12.3 % (11.5-14.5) 06/28/24 Plt Count 182 K/uL (130-400) 06/28/24 MPV 9.2 fL (9.4-12.4) L 06/28/24 Neutrophils (%) (Auto) 82.3 % 06/28/24 Lymphocytes (%) (Auto) 10.0 % 06/28/24 Monocytes # (Auto) 0.90 K/uL (0.11-0.59) H 06/28/24 Eosinophils # (Auto) 0.03 K/uL (0.00-0.50) 06/28/24 Immature Granulocyte % (Auto) 0.2 % 06/28/24 Neutrophils # (Auto) 10.24 K/uL (1.40-6.50) H 06/28/24 Lymphocytes # (Auto) 1.24 K/uL (1.20-3.40) 06/28/24 Monocytes # (Auto) 0.90 K/uL (0.11-0.59) H 06/28/24 Eosinophils # (Auto) 0.03 K/uL (0.00-0.50) 06/28/24 Basophils # (Auto) 0.01 K/uL (0.00-0.20) 06/28/24 Immature Granulocyte # (Auto) 0.03 K/uL (0.01-0.20) 4 PG Care Time/CCT Total # of Minutes Spent Total Time Spent with Patient: Total time spent is greater than 50% in coordination of care (as documented) at patient's floor/unit and/or counseling patient: Coding Level of Care Code 34995 Post Operative Follow-Up Diagnoses Acute cholecystitis K81.0
--- NOTE | 2024-06-28 08:58 | Discharge Summary ---
Date of Service June 28, 2024 Admission HPI Per Admitting Provider 68-year-old male who began having rather severe epigastric abdominal pain last night. He had associated nausea and it persisted. He presented to the emergency room where he has a leukocytosis as well as an ultrasound with early acute cholecystitis. Feeling better after the fentanyl but still having some discomfort Principal Diagnosis acute cholecystitis Discharge Exam Constitutional cooperative and comfortable; no acute distress Respiratory normal respiratory effort; no respiratory distress Cardiovascular Rate/Rhythm: regular rate Gastrointestinal (Abdomen) Inspection/Auscultation: + abdominal surgical incision (dermabond CDI ) Psychiatric A+Ox3, euthymic affect Discharge Data Allergies Allergy/AdvReac Type Severity Reaction Status Date / Time No Known Allergies Allergy Verified 03/05/24 13:33 Procedures Performed Operation Date: 06/27/24 12:00 Actual Procedures p Laparoscopic Cholecystectomy(Not Applicable) - Ryan Agudelo, Ordered Studies 06/27/24 03:08 CT abd pelvis IV con only Stat 06/27/24 05:42 US gallbladder Stat Hospital Course (1) Acute cholecystitis: This is a 68 y male who presented to the [facility] ED on 06/27/24 with abdominal pain. Workup in the ED showed a WBC of [address] a/p and U/S concerning for Cholelithiasis /cholecystitis/ umbilical hernia repair (see HPI for full details). The patient was tender to palpation in the RUQ. Patient made NPO with IVF and booked for the OR. On 06/27/24 the patient went to the OR with Dr. Agudelo for a Laparoscopic cholecystectomy and umbilical hernia repair. The patient tolerated the procedure well, see operative report for full details. Post operatively the patient's diet was advanced, pain managed on prn meds, and incisions clean/dry/intact. On POD#1 06/28/24 the patient was deemed stable for discharge to home. The patient was given discharge instructions, follow up recommendations, return precautions and a prescription for narcotic pain medication. Total Time Total Time Spent Total Time Spent (In Minutes): 10 Discharge Plan Discharge Items Patient Disposition: Home - Self-Care Reason For Visit: CHOLECYSTITIS Discharge Diagnosis: acute cholecystitis Activity: Per Instructions section Lifting: No more than 10 pounds Bathing Comment: you can shower. No soaking in pools/bath for 2 weeks Exercise/Sports: Wait until after follow-up appointment Driving/Machine Use: no driving if taking narcotic pain medication Non-emergency contact: Surgeon Call non-emergency contact if: you have any medication questions, your symptoms worsen, your temperature is above 101.5, your wound has increased redness, your wound has increased drainage and your wound pain has increased Follow-up/Referrals: Ryan Agudelo, [Surgeon] - 07/19/24 1:15 pm ( follow up in 2 weeks ) Janet Martinez MD [Primary Care Provider] - Diet: Regular Addtl Attending Provider Instructions: You have surgical glue called dermabond on your surgical site incisions. You may shower with this on. This will tend to come off within a couple of weeks. Do not pick at it. Pending Studies at Discharge: Yes Studies:: surgical pathology Stand-Alone Forms: My [facility], Pain - Opioid Pain Management, Sm oking Cessation Medications and DC Order Prescriptions: New oxycodone 5 mg tablet 5 - 10 mg PO .[id number] MDD no more than 6 tabs in 24hours PRN (Reason: pain) Qty: 15 0RF Continued azelastine 137 mcg (0.1 %) spray,non-aerosol 2 spray intranasal BID Rx Instructions: administer into each nostril cyanocobalamin (vitamin B-12) 1,000 mcg tablet 1,000 mcg PO DAILY multivitamin Tablet 1 tab PO DAILY pyridoxine (vitamin B6) 100 mg tablet 100 mg PO DAILY thiamine HCl (vitamin B1) 100 mg tablet 100 mg PO DAILY triamcinolone acetonide 0.025 % lotion 1 applic topical BID Discharge Orders: Discharge Order (Routine); Ordered 06/28/24 Ordered By: Chantelle Morales/Other Patient Handouts: Cholecystectomy Admission Data Admit Date/Time: 06/27/24 15:59 Attending Provider: Ryan Agudelo Admit Provider: Ryan Agudelo Primary Care Provider: Janet Martinez Other Interventions: Discharge Summary Assessment (RN) Last Done: 06/28/24 09:20 Coding Level of Care Code 92193 IN/OBS DISCH 30 MIN/LESS Diagnoses Acute cholecystitis K81.0
[2024-06-28 09:22] VITALS: BP 157/76; PULSE 73
== END 2024-06-28 09:59 | disposition home or self-care (01) ==
LOC: ED 02:55 → OR 14:09 → 3E 14:09 → OR 14:17